=== PATIENT | female | born 1970 | race Caucasian/White ===

== ENCOUNTER 2020-05-09 15:18 | Outpatient (CLI) | payer MEDICARE, MEDICAID, SELFPAY ==
--- NOTE | 2020-05-09 15:26 | CT_ITS ---
WS: [id number] CT CERVICAL SPINE TECHNIQUE: Noncontrast CT of the cervical spine with coronal and sagittal reformatted images. CLINICAL INFORMATION: CERVICAL SPONDYLOSIS, THORACIC PAIN, SPINAL CORD STIMULATOR COMPARISON: CT 30,019 and 12 ,018 DLP: 1609.[address] scans at [facility] use at least one of these dose optimization techniques: automat ed exposure control; mA and/or kV adjustment per patient size (includes targeted exams where dose is matched to clinical indication); or iterative reconstruction. FINDINGS: Interval postoperative changes laminectomy defects in the cervical spine with dorsal column stimulator. Stimulator appears in good position. No significant central canal stenosis. Stable anterior C4-5 screw fixation and interbody fusion appears stable. Unchanged cervical fusion an teriorly C5-T1. Posterior last and screw fixation C3-T1 on the left and C3-C7 on the right. Interconne cting rods appear intact. Evidence of bony bridging beyond the confines of the fusion grafts at C5 through T1. C4 and C5 reddy ctomy defects. No high-grade central canal stenosis. C2-C3: Normal. C3-C4: Tiny central protrusion. Spinal canal and foramen are patent. Moderate facet arthropathy. C4-C 5: Prior postoperative changes laminectomy defects. Spinal canal and foramen are patent. C5-C6: Anter ior cervical fusion. Mild left bony foraminal narrowing. Spinal canal is patent. C6-C7: Anterior cervical fusion. Spinal canal and foramen are patent. C7-T1: Anterior cervical fusion. Spinal canal and foramen are patent. T1-T2: Moderate right and mild left bony foraminal narrowing. Spinal canal is patent. Visualized posterior nasopharynx: Normal. Prevertebral soft tissues: Normal. CT/CT cervical spin wo con* [id number] IMPRESSION: 1. Stable postoperative changes ACDF C4-T1. Posterior element last and screw fi xation. 2. Interval laminectomy defects in the mid cervical spine with dorsal column s timulator. 3. No other significant changes from previous. 4. Mature appearing anterior interbody fusion at C5-T1 with evidence of bony b ridging beyond the confines of the graft. 5. No high-grade central canal stenosis.
--- NOTE | 2020-05-09 15:26 | CT_ITS ---
WS: [id number] CT THORACIC SPINE TECHNIQUE: Noncontrast CT of the thoracic spine with coronal and sagittal reformatted images. CLINICAL INFORMATION: CERVICAL SPONDYLOSIS, THORACIC PAIN, SPINAL CORD STIMULATOR COMPARISON: None. DLP: 883.[address] scans at [facility] use at least one of these dose optimization techniques: automat ed exposure control; mA and/or kV adjustment per patient size (includes targeted exams where dose is matched to clinical indication); or iterative reconstruction. FINDINGS: Mild thoracic curve. Mild thoracic kyphosis. Interval placement of dorsal column stimulator in the mi d thoracic spine with laminectomy defects at the T9 level. No evidence of significant central canal s tenosis. Disc space heights and vertebral body heights well-preserved. Partially visualized postopera tive changes in the lower cervical spine extending to the T1 level described on the cervical spine CT . Normal postoperative changes in the dorsal subcutaneous soft tissues. No evidence of hematoma or dr ainable fluid collection. Partially visualized lungs are normal in appearance. Bibasilar atelectasis. Postoperative changes GE junction. Adrenal glands are normal. CT/CT thoracic spin wo con* [id number] IMPRESSION: 1. Mild thoracic kyphosis with mild thoracic curve. 2. Laminectomy defects at T9 with dorsal column stimulator. No evidence of hem atoma or drainable fluid collection. 3. No significant central canal narrowing. 4. Postoperative changes lower cervical and upper thoracic spine described on the cervical spine CT.
== END 2020-05-09 15:19 | disposition home or self-care (01) ==
LOC: RADWPI 15:24
PROVIDERS: Family Provider Family Medicine; PCP Family Medicine; Visit Provider Anesthesiology
DX: G89.4 Chronic pain syndrome (principal); Z96.82 Presence of neurostimulator; M47.812 Spondylosis without myelopathy or radiculopathy, cervical region; M96.1 Postlaminectomy syndrome, not elsewhere classified; Z98.1 Arthrodesis status; M43.23 Fusion of spine, cervicothoracic region
CPT/HCPCS: 72125; 72128

== ENCOUNTER → 2021-04-18 13:27 | Outpatient (BNVA) | payer MEDICARE, MEDICAID, SELFPAY | PROVIDERS: Family Provider Family Medicine; PCP Family Medicine; Visit Provider Specialist | DX: G43.019 Migraine without aura, intractable, without status migrainosus (principal); M96.1 Postlaminectomy syndrome, not elsewhere classified; M62.58 Muscle wasting and atrophy, not elsewhere classified, other site | CPT/HCPCS: 99205 ==

== ENCOUNTER 2021-04-25 06:00 | Outpatient (RCR) | payer MEDICARE, MEDICAID, SELFPAY | END 2021-05-09 23:59 | disposition home or self-care (01) | LOC: SPT 06:00 | PROVIDERS: PCP Family Medicine; Referring Provider Specialist; Visit Provider Specialist | DX: M96.1 Postlaminectomy syndrome, not elsewhere classified (principal); M50.90 Cervical disc disorder, unspecified, unspecified cervical region; M47.812 Spondylosis without myelopathy or radiculopathy, cervical region; G43.019 Migraine without aura, intractable, without status migrainosus; M54.5 Low back pain; M54.2 Cervicalgia | CPT/HCPCS: 97110; 97162; 99205 ==

== ENCOUNTER 2021-05-10 06:00 | Outpatient (RCR) | payer MEDICARE, MEDICAID, SELFPAY | END 2021-06-09 23:59 | disposition home or self-care (01) | LOC: SPT 06:00 | PROVIDERS: PCP Family Medicine; Referring Provider Specialist; Visit Provider Specialist | DX: M54.2 Cervicalgia (principal) | CPT/HCPCS: 97110; 97164 ==

== ENCOUNTER → 2021-05-23 14:14 | Outpatient (BNVA) | payer MEDICARE, MEDICAID, SELFPAY | PROVIDERS: PCP Family Medicine; Visit Provider Anesthesiology Pain Medicine | DX: G89.29 Other chronic pain (principal); M96.1 Postlaminectomy syndrome, not elsewhere classified; G43.019 Migraine without aura, intractable, without status migrainosus; M50.90 Cervical disc disorder, unspecified, unspecified cervical region; M47.812 Spondylosis without myelopathy or radiculopathy, cervical region; M54.50 Low back pain, unspecified | CPT/HCPCS: 99214 ==

== ENCOUNTER → 2021-06-05 14:00 | Outpatient (BNVA) | payer MEDICARE, MEDICAID, SELFPAY | PROVIDERS: PCP Family Medicine; Visit Provider Anesthesiology Pain Medicine | DX: M47.812 Spondylosis without myelopathy or radiculopathy, cervical region (principal) | CPT/HCPCS: 64490; 64491; 64492; J3490 ==

== ENCOUNTER 2021-06-10 06:00 | Outpatient (RCR) | payer MEDICARE, MEDICAID, SELFPAY | END 2021-07-09 23:59 | disposition home or self-care (01) | LOC: SPT 06:00 | PROVIDERS: PCP Family Medicine; Referring Provider Specialist; Visit Provider Specialist | DX: M54.2 Cervicalgia | CPT/HCPCS: 97110 ==

== ENCOUNTER → 2021-06-18 13:34 | Outpatient (BNVA) | payer MEDICARE, MEDICAID, SELFPAY | PROVIDERS: PCP Family Medicine; Visit Provider Anesthesiology Pain Medicine | DX: M47.812 Spondylosis without myelopathy or radiculopathy, cervical region (principal); M50.90 Cervical disc disorder, unspecified, unspecified cervical region; M96.1 Postlaminectomy syndrome, not elsewhere classified; G43.019 Migraine without aura, intractable, without status migrainosus | CPT/HCPCS: 99214 ==

== ENCOUNTER → 2021-07-09 14:35 | Outpatient (BNVA) | payer MEDICARE, MEDICAID, SELFPAY | PROVIDERS: PCP Family Medicine; Visit Provider Anesthesiology Pain Medicine | DX: M47.812 Spondylosis without myelopathy or radiculopathy, cervical region (principal) | CPT/HCPCS: 64633; 64634; J1100 ==

== ENCOUNTER → 2021-07-23 13:02 | Outpatient (BNVA) | payer MEDICARE, MEDICAID, SELFPAY | PROVIDERS: PCP Family Medicine; Visit Provider Anesthesiology Pain Medicine | DX: M47.812 Spondylosis without myelopathy or radiculopathy, cervical region (principal) | CPT/HCPCS: 64633; 64634; J1100 ==

== ENCOUNTER → 2021-09-25 10:07 | Outpatient (BNVA) | payer MEDICARE, MEDICAID, SELFPAY | PROVIDERS: PCP Family Medicine; Visit Provider Anesthesiology Pain Medicine | DX: M79.18 Myalgia, other site (principal); M96.1 Postlaminectomy syndrome, not elsewhere classified; M50.90 Cervical disc disorder, unspecified, unspecified cervical region; M47.812 Spondylosis without myelopathy or radiculopathy, cervical region; G43.019 Migraine without aura, intractable, without status migrainosus; Z98.84 Bariatric surgery status | CPT/HCPCS: 20553; 99214; J1030; J3490 ==

== ENCOUNTER → 2021-10-28 11:05 | Outpatient (BNVA) | payer MEDICARE, MEDICAID, SELFPAY | PROVIDERS: PCP Family Medicine; Visit Provider Anesthesiology Pain Medicine | DX: M47.812 Spondylosis without myelopathy or radiculopathy, cervical region (principal); M50.90 Cervical disc disorder, unspecified, unspecified cervical region; M54.50 Low back pain, unspecified; M96.1 Postlaminectomy syndrome, not elsewhere classified; G43.019 Migraine without aura, intractable, without status migrainosus; Z98.84 Bariatric surgery status; Z79.891 Long term (current) use of opiate analgesic | CPT/HCPCS: 99214 ==

== ENCOUNTER → 2021-12-23 11:03 | Outpatient (BNVA) | payer MEDICARE, MEDICAID, SELFPAY | PROVIDERS: PCP Family Medicine; Visit Provider Anesthesiology Pain Medicine | DX: M47.812 Spondylosis without myelopathy or radiculopathy, cervical region (principal); M50.90 Cervical disc disorder, unspecified, unspecified cervical region; G43.019 Migraine without aura, intractable, without status migrainosus; M96.1 Postlaminectomy syndrome, not elsewhere classified; Z98.84 Bariatric surgery status; Z79.891 Long term (current) use of opiate analgesic | CPT/HCPCS: 99214 ==

== ENCOUNTER → 2022-02-06 12:49 | Outpatient (BNVA) | payer MEDICARE, MEDICAID, SELFPAY | PROVIDERS: PCP Family Medicine; Visit Provider Anesthesiology Pain Medicine | DX: M47.812 Spondylosis without myelopathy or radiculopathy, cervical region (principal); M50.90 Cervical disc disorder, unspecified, unspecified cervical region; M79.18 Myalgia, other site; M96.1 Postlaminectomy syndrome, not elsewhere classified; G43.019 Migraine without aura, intractable, without status migrainosus; M54.50 Low back pain, unspecified; Z98.84 Bariatric surgery status; Z79.891 Long term (current) use of opiate analgesic | CPT/HCPCS: 20553; 99214 ==

== ENCOUNTER → 2022-03-06 12:50 | Outpatient (BNVA) | payer MEDICARE, MEDICAID, SELFPAY | PROVIDERS: PCP Family Medicine; Visit Provider Anesthesiology Pain Medicine | DX: Z79.891 Long term (current) use of opiate analgesic (principal); M54.16 Radiculopathy, lumbar region; M47.812 Spondylosis without myelopathy or radiculopathy, cervical region; M50.90 Cervical disc disorder, unspecified, unspecified cervical region; G43.019 Migraine without aura, intractable, without status migrainosus; M96.1 Postlaminectomy syndrome, not elsewhere classified; Z98.84 Bariatric surgery status | CPT/HCPCS: 99214 ==

== ENCOUNTER → 2022-04-09 08:44 | Outpatient (BNVA) | payer MEDICARE, MEDICAID, SELFPAY | PROVIDERS: PCP Family Medicine; Visit Provider Anesthesiology Pain Medicine | DX: M47.812 Spondylosis without myelopathy or radiculopathy, cervical region (principal); M50.90 Cervical disc disorder, unspecified, unspecified cervical region; M54.9 Dorsalgia, unspecified; M96.1 Postlaminectomy syndrome, not elsewhere classified; G43.019 Migraine without aura, intractable, without status migrainosus | CPT/HCPCS: 99214 ==

== ENCOUNTER 2022-04-15 08:46 | Outpatient (CLI) | payer MEDICARE, MEDICAID, SELFPAY ==
--- NOTE | 2022-04-15 09:00 | CT_ITS ---
WS: [id number] CT LUMBAR SPINE, noncontrast. HISTORY: M54.16 - Radiculopathy, lumbar region TECHNIQUE: Contiguous 2.5 mm axial imaging are performed. Sagittal and coronal reformats are submitte d and reviewed. All CT scans at [facility] use at least one of these dose optimization techni ques: automated exposure control; mA and/or kV adjustment per patient size (includes targeted exams w here dose is matched to clinical indication); or iterative reconstruction. IV contrast: None DLP: 1800.44 mGy.cm COMPARISON: 08/08/2019 Mild curvature lumbar spine to the RIGHT. Similar to the prior study along with mild increase in lord osis. Postoperative pedicle screw fixation at L5 and S1 and interbody fusions at L4-5 and L5-S1. Ther e is bony bridging along the graft. No change in position of the graft. L1-2: Normal. L2-3: Mild asymmetric disc bulging with no stenosis. Mild facet arthropathy. L3-4: Mild disc bulging is asymmetric with mild effacement on the ventral thecal sac. No stenosis or disc protrusion. Mild bilateral facet joint arthritis. L4-5: Moderate facet joint arthritis. Very mild encroachment upon the central thecal sac. There is no significant stenosis or disc protrusion. Moderate facet joint arthritis. Partial fusion along the fa cet joints. No change in the pedicle screws. No lucency around the pedicle screws. L5-S1: Mild osteophytic ridging. No stenosis. Moderate facet joint arthritis. Mild atherosclerosis aorta. Degenerative air in the SI joints bilaterally. CT/CT lumbar spine wo con* [id number] IMPRESSION: 1. Status post interbody fusions at L4-5 and L5-S1 with bony bridging unchange d. 2. Pedicle screws at L5 and S1 are unchanged. No lucency around the hardware. 3. Moderate facet joint arthritis at L4-5 and L5-S1 and mild at L2-3 and L3-4. 4. No adverse changes are identified as compared to the study from 2008.
== END 2022-04-15 08:47 | disposition home or self-care (01) ==
LOC: RAD 08:47
PROVIDERS: PCP Family Medicine; Visit Provider Anesthesiology Pain Medicine
DX: M54.16 Radiculopathy, lumbar region (principal); M47.816 Spondylosis without myelopathy or radiculopathy, lumbar region; M47.817 Spondylosis without myelopathy or radiculopathy, lumbosacral region; M43.26 Fusion of spine, lumbar region; M43.27 Fusion of spine, lumbosacral region
CPT/HCPCS: 72131

== ENCOUNTER → 2022-05-06 07:51 | Outpatient (BNVA) | payer MEDICARE, MEDICAID, SELFPAY | PROVIDERS: PCP Family Medicine; Visit Provider Surgery | DX: K59.00 Constipation, unspecified (principal) | CPT/HCPCS: 99203 ==

== ENCOUNTER → 2022-06-04 08:45 | Outpatient (BNVA) | payer MEDICARE, MEDICAID, SELFPAY | PROVIDERS: PCP Family Medicine; Visit Provider Anesthesiology Pain Medicine | DX: M54.16 Radiculopathy, lumbar region (principal); M47.812 Spondylosis without myelopathy or radiculopathy, cervical region; M50.90 Cervical disc disorder, unspecified, unspecified cervical region; M96.1 Postlaminectomy syndrome, not elsewhere classified; G43.019 Migraine without aura, intractable, without status migrainosus; T85.192A Other mechanical complication of implanted electronic neurostimulator of spinal cord electrode (lead), initial encounter; Z98.84 Bariatric surgery status | CPT/HCPCS: 99214 ==

== ENCOUNTER → 2022-06-11 09:07 | Outpatient (BNVA) | payer MEDICARE, MEDICAID, SELFPAY | PROVIDERS: PCP Family Medicine; Visit Provider Anesthesiology Pain Medicine | DX: M79.18 Myalgia, other site (principal); Z87.891 Personal history of nicotine dependence | CPT/HCPCS: 20553; G0463 ==

== ENCOUNTER → 2022-06-24 08:01 | Outpatient (BNVA) | payer MEDICARE, MEDICAID, SELFPAY | PROVIDERS: PCP Family Medicine; Referring Provider Anesthesiology Pain Medicine; Visit Provider Physician Assistant | DX: T85.192A Other mechanical complication of implanted electronic neurostimulator of spinal cord electrode (lead), initial encounter (principal); Z98.1 Arthrodesis status | CPT/HCPCS: 72050; 72100; 99205 ==

== ENCOUNTER → 2022-07-07 09:09 | Outpatient (BNVA) | payer MEDICARE, MEDICAID, SELFPAY | PROVIDERS: PCP Family Medicine; Visit Provider Anesthesiology Pain Medicine | DX: M47.812 Spondylosis without myelopathy or radiculopathy, cervical region (principal); M50.90 Cervical disc disorder, unspecified, unspecified cervical region; M96.1 Postlaminectomy syndrome, not elsewhere classified; G43.019 Migraine without aura, intractable, without status migrainosus; Z87.891 Personal history of nicotine dependence; Z98.84 Bariatric surgery status | CPT/HCPCS: 99214 ==

== ENCOUNTER 2022-07-25 15:06 | Observation (INO) | payer MEDICARE, MEDICAID, SELFPAY ==
[2022-07-18 08:20] VITALS: BMI 33.5
--- NOTE | 2022-07-18 08:41 | ANES.PREANE2 ---
Pre-Anesthetic Assessment Height/Weight: Height 1.63 m Weight 88.451 kg Operation Date: 07/25/22 07:00 Proposed Procedures p Nerve Stimulator Insertion/REPLACEMENT PULE GENERATOR/ELECTRODE 34488/46884/M54.2(Not Applicable) - Edgar Zavala DO Familial anesthetic complications: none Was Beta Shae taken within 24 hours: Yes Was Clonidine taken within 24 hours: N/A Social No alcohol and No tobacco Exam alert, oriented x 3, clear to auscultation bilaterally and regular rate & rhythm Airway Submandibular: within normal limits Cervical ROM: within normal limits Mallampati: Class II Dentition: full CV/HEM Arrythmia GI gastric bypass Musc/skel Lower Back Pain Chronic pain Neuropsych Anxiety and Headache Anesthetic Plan ASA status: 3 Anesthesia: General Medications/Allergies Home Medications Medication Instructions Recorded Confirmed Last Taken Type metoprolol tartrate 50 mg tablet 50 mg PO BID 04/18/21 07/18/22 07/17/22 History (Lopressor) venlafaxine 150 mg 300 mg PO DAILY 04/18/21 07/18/22 07/17/22 History capsule,extended release 24 hr (Effexor XR) zolpidem 5 mg tablet (Ambien) 5 mg PO DAILY 04/18/21 07/18/22 07/17/22 History llbukpn-ntctpcnmltxyw-rskxzshg 250 1 tab PO ONCE PRN Pain 09/25/21 07/18/22 07/17/22 History mg-250 mg-65 mg tablet (Excedrin Extra Strength) baclofen 10 mg tablet 10 mg PO BID PRN spasm #60 tabs 04/09/22 07/18/22 07/09/22 Rx topiramate 50 mg tablet 50 mg PO BID pain 30 days #60 tabs 06/04/22 07/18/22 07/11/22 Rx tramadol 50 mg tablet 50 mg PO BID PRN pain #60 tabs 07/07/22 07/18/22 07/17/22 Rx methocarbamol 750 mg tablet mg 07/18/22 Unknown History Allergies Allergy/AdvReac Type Severity Reaction Status Date / Time adhesive Allergy red skin Verified 07/18/22 08:15 tizanidine Allergy Hallucinati Verified 07/18/22 08:15 ons zonisamide [From Zonegran] AdvReac Mild ITCHING Verified 07/18/22 08:15 codeine AdvReac Racing Verified 07/18/22 08:15 thoughts hydrocodone AdvReac Itching Verified 07/18/22 08:15 ibuprofen AdvReac RASH/ Verified 07/18/22 08:15 ITCHING PFSH Anesthesia Medical History Hypertension Surgical History History of neck surgery Personal hx of gastric bypass 2-3 yrs ago [place] S/P insertion of spinal cord stimulator lumbar & cervical Family History Other Diabetes Social History (Updated 07/07/22 @ 09:39 by Nicky Patel LPN) Smoking and tobacco status: former smoker Second hand smoke exposure: No Alcohol intake: never Substance/Drug Use: never History of recent travel: No Data Anesthesia Cardiac Studies: No Data to Display
[2022-07-25] VITALS (25 sets, daily range): BP systolic 114–145; BP diastolic 77–101; PULSE 71–102; RESP 16–18; TEMP 36.6–36.8; O2SAT 93–100
--- NOTE | 2022-07-25 | XR_ITS ---
WS: [id number] Thoracic spine, C-arm fluoroscopy, 07/25/2022 Clinical Data: removal of spinal cord stimulator Comparison: CT thoracic spine, 05/09/2020 Findings: The thoracic spinal cord stimulator has been removed. XR/XR thoracic spine 1V [id number] Impression: Removal of thoracic epidural stimulator.
--- NOTE | 2022-07-25 06:08 | P.HP_ITS ---
Providers/Chief Complaint Primary Care Provider: Leela France DO Chief Complaint: INSERTION/REPLACEMENTOF SPINAL NEUROSTIMULATOR PUL History of Present Illness Rea Rider is a 52 year old female Patient is here for removal of her thoracic neurostimulator and battery pack and replacement with a new 1. Review of Systems Const: Reports: fatigue; Denies: fever(s) or chills Eyes: Denies: change in vision or blurry vision ENMT: Denies: throat pain or ear or mastoid pain Card: Denies: chest pain or palpitations Resp: Denies: dyspnea or productive cough GI: Denies: abdominal pain, nausea or vomiting Musc: Reports: neck pain, back pain and extremity pain Skin/Breast: Denies: rash or pruritus Neuro: Reports: numbness in extremities; Denies: difficulty walking Psych: Denies: anxiety or depression Medications/Allergies Home Medications Medication Instructions Recorded Confirmed Last Taken Type metoprolol tartrate 50 mg tablet 50 mg PO BID 04/18/21 07/18/22 07/17/22 History (Lopressor) venlafaxine 150 mg 300 mg PO DAILY 04/18/21 07/18/22 07/17/22 History capsule,extended release 24 hr (Effexor XR) zolpidem 5 mg tablet (Ambien) 5 mg PO DAILY 04/18/21 07/18/22 07/17/22 History qilrzng-lfdvnlbwvcngx-xnaqssoj 250 1 tab PO ONCE PRN Pain 09/25/21 07/18/22 07/17/22 History mg-250 mg-65 mg tablet (Excedrin Extra Strength) baclofen 10 mg tablet 10 mg PO BID PRN spasm #60 tabs 04/09/22 07/18/22 07/09/22 Rx topiramate 50 mg tablet 50 mg PO BID pain 30 days #60 tabs 06/04/22 07/18/22 07/11/22 Rx tramadol 50 mg tablet 50 mg PO BID PRN pain #60 tabs 07/07/22 07/18/22 07/17/22 Rx methocarbamol 750 mg tablet mg 07/18/22 Unknown History Allergies Allergy/AdvReac Type Severity Reaction Status Date / Time adhesive Allergy red skin Verified 07/18/22 08:15 tizanidine Allergy Hallucinati Verified 07/18/22 08:15 ons zonisamide [From Zonegran] AdvReac Mild ITCHING Verified 07/18/22 08:15 codeine AdvReac Racing Verified 07/18/22 08:15 thoughts hydrocodone AdvReac Itching Verified 07/18/22 08:15 ibuprofen AdvReac RASH/ Verified 07/18/22 08:15 ITCHING PFSH Acute PFSH: Medical History Hypertension Surgical History History of neck surgery Personal hx of gastric bypass 2-3 yrs ago [place] S/P insertion of spinal cord stimulator lumbar & cervical Family History Other Diabetes Social History (Updated 07/07/22 @ 09:39 by Nicky Patel LPN) Smoking and tobacco status: former smoker Second hand smoke exposure: No Alcohol intake: never History of recent travel: No Vitals/I&O/Wt Last Vital Signs Temp 97.8 F 07/25/22 06:07 Pulse 89 07/25/22 06:07 Resp 18 07/25/22 06:07 BP 143/83 07/25/22 06:07 Pulse Ox 96 07/25/22 06:07 O2 Del Method 07/25/22 06:07 Physical Exam Narrative: CONSTITUTIONAL: The patient is a normal appearing [] in no apparent distress. GENERAL: Patient in no acute distress. CARDIAC: Regular rate and rhythm. CHEST: Normal inspiratory effort, normal respiratory rate. ABDOMEN: Soft and nontender. SKIN: Clear, warm and intact. NEURO?PSYCH: The patient is alert and oriented to person, place and time. Sensorv /SILT Motor StrengthShoulder abduction C5 5/5Wrist extension C6 5/5Elbow extension C7 5/5Hand Link Knitting Machine Operator C8 5/5Finger abduction T15/5 Radial/ Ulnar/ Median n intact LowerSensory (SILT)Motor StrengthHin flexion L2/3Ant/inner thigh 5/5Hip adduction L2/3 5/5Knee extension L4 Lat thigh, 5/5Toe dorsiflexion L5 5/5Ankle dorsiflexion L5/ Y42Ytmrivt flexion S1 5/5 DTRBleeps 2+Triceps 2+Brachioradialis 2+Patellar 2+Achilles 2+ MUSCULOSKELETAL: [] UPPEREXTREMITIES: The patient had full active ROM in fingers, wrist, elbow, and shoulder. The patient demonstrated ability to fully flex/extend/abduct/adduct fingers, make ok sign, cross 2nd/3rd digits, extend 1st digit fully.. Radial pulse 2+, CR<2 seconds. LOWER EXTREMITIES: Pt has full, active ROM of toes, ankle, knee, and hip. Dorsalis pedis/posterior tibialis pulses 2+, CR<2 seconds. SPINE: Skin warm, dry, intact. A&P Assessment and plan (1) Status post lumbar spinal fusion: Replacement of neurostimulator. Attestations Medical Necessity Statement*: All stimulator is not working. Coding Level of Care Code Acute Resin Coater for Chg Fwd Diagnoses Status post lumbar spinal fusion Z98.1
[2022-07-25 06:11] LABS: OR HCG Qualitative Urine Negative (Negative)
[2022-07-25] MEDS: sodium chloride 0.9% 1,000 ML 30 ML IV (06:11)
[2022-07-25] MEDS: ceFAZolin 2,000 MG in sodium chloride 0.9% (plus) 50 ML 100 MG IV ×3 (07:08→23:14)
[2022-07-25] MEDS: fentaNYL 50 mcg/mL INJ 2mL IVP (08:55)
--- NOTE | 2022-07-25 09:08 | PM.OP ---
Operative Report Date of procedure: July 25, 2022 Pre-op diagnosis: Preop Diagnosis Malfunctioning spinal cord stimulator Post-op diagnosis: same Procedure done: 1. Removal of neuro stimualtor 2. Removal of battery for neuro stimulator Surgeon: Edgar Zavala Estimated blood loss (mL): 25 Procedure: 1. Removal of neuro stimualtor 2. Removal of battery for neuro stimulato Patient was brought to the procedure after undergoing anesthesia was placed in the prone position. All areas appear well-padded patient was prepped draped normal sterile fashion. Skin was made over the previous skin incision dissected down. The previous neurostimulator was identified it was partially out and in the soft tissue. The dissection was brought down to the lamina with the plan of sliding a new paddle in. A laminectomy was performed on the microscope and once his laminectomies completed the tissues were freed up with the hockey-stick failure. He had in the new neurostimulator set up. He was meeting resistance. At this point I elected to start to perform laminectomy at the level above to see if we get it out further. However the dura was significant scarred down and actually got a small dural leak. Which I put a patch over and DuraSeal and the leak immediately stopped. The wound was then closed up in a layered fashion. Prior to closing up the all paddle was removed. And cut. Next attention was brought to the battery over the left flank. The skin incision made over the previous incision the battery was identified but it was moved wires were pulled C-arm was brought in the shoulder was an leads and batteries were removed. And then the wound was closed in layered fashion with 0 Vicryl 2-0 Vicryl and Monocryl suture. Sterile dressings were applied and patient was transferred to the PACU in stable addition.
[2022-07-25] MEDS: oxyCODONE-APAP 5-325 mg Tablet PO ×3 (12:18→21:00)
[2022-07-25] MEDS: methocarbamol 750 mg Tablet PO (13:54)
--- NOTE | 2022-07-25 14:38 | ANE.PACU2 ---
Inpatient post-anesthesia follow up: Airway intact: Yes Vital signs: Temperature 98.2 F Pulse Rate 101 Respiratory Rate 16 Blood Pressure 145/90 Pulse Oximetry 93 Oxygen Delivery Me thod Room Air Oxygen Flow Rate Fraction of Inspir ed Oxygen Hydration adequate: Yes Nausea and vomiting: No Pain level: 1 Mental status: Baseline
[2022-07-25] MEDS: morphine 4 mg/mL SDV 1 mL 2 MG IVP (17:50)
[2022-07-25] MEDS: metoprolol tartrate 50 mg Tablet PO (18:12)
[2022-07-25] MEDS: zolpidem 5 mg Tablet PO (21:00)
[2022-07-25] MEDS: lactated ringers 1,000 ML 90 ML IV (21:01)
[2022-07-26 02:37] VITALS: RESP 18
[2022-07-26] MEDS: oxyCODONE-APAP 5-325 mg Tablet PO ×2 (02:37→09:25)
[2022-07-26 04:00] VITALS: BP 115/73; PULSE 88; RESP 16; TEMP 36.6; O2SAT 95
[2022-07-26] MEDS: ceFAZolin 2,000 MG in sodium chloride 0.9% (plus) 50 ML 100 MG IV (06:01)
[2022-07-26] MEDS: methocarbamol 750 mg Tablet PO (06:08)
[2022-07-26 07:56] VITALS: PULSE 76; RESP 16; O2SAT 98
[2022-07-26 08:00] VITALS: BP 118/73; PULSE 74; RESP 14; TEMP 36.6; O2SAT 98
[2022-07-26 09:25] VITALS: RESP 18
[2022-07-26] MEDS: venlafaxine ER (24HR) 150 mg Capsule 300 MG PO (09:25)
[2022-07-26] MEDS: metoprolol tartrate 50 mg Tablet PO (09:26)
[2022-07-26] MEDS: docusate sodium 100 mg Capsule PO (09:26)
--- NOTE | 2022-07-26 09:45 | PM.DCS ---
Discharge Providers Date of Admission: 07/25/22 15:06 Date of Discharge: July 26, 2022 Attending Provider at Admission: Edgar Zavala DO Attending Provider at Discharge: Edgar Zavala DO Primary Care Provider: Leela France DO Diagnoses at Discharge Discharge Diagnosis (1) Status post lumbar spinal fusion: Status: Acute Reason for Visit Reason for Visit: INSERTION/REPLACEMENTOF SPINAL NEUROSTIMULATOR PUL Hospital Course Hospital Course Patient had a dural leak and her headaches were tipped her over. Discharge Data Studies Completed and Pending Completed Studies During Hospitalization Category Date Time Status XR thoracic spine 1V 33442 Routine Exams 07/25/22 Completed Pending at discharge Category Date Time Status C-arm Fluoroscopy [id number] Routine Exams 07/25/22 05:50 Taken Radiology Impressions Thoracic Spine X-Ray 07/25/22 00:00 Impression: Removal of thoracic epidural stimulator. Laboratory Results Urine HCG, Qual Negative (Negative) 07/25/22 06:00 Vitals Last Vital Signs Temp 97.9 F 07/26/22 08:00 Pulse 74 07/26/22 08:00 Resp 18 07/26/22 09:25 BP 118/73 07/26/22 08:00 Pulse Ox 98 07/26/22 08:00 O2 Del Method 07/26/22 08:00 Discharge Plan Discharge Patient Disposition: Home Condition: Stable Prescriptions: New oxycodone 10 mg tablet 10 mg PO Q4H PRN (Reason: pain) 7 Days Qty: 42 0RF Continued venlafaxine [Effexor XR] 150 mg capsule,extended release 24hr 300 mg PO DAILY metoprolol tartrate [Lopressor] 50 mg tablet 50 mg PO BID zolpidem [Ambien] 5 mg tablet 5 mg PO DAILY Excedrin Extra Strength 250-250-65 mg tablet 1 tab PO ONCE PRN (Reason: Pain) baclofen 10 mg tablet 10 mg PO BID PRN (Reason: spasm) Qty: 60 1RF tramadol 50 mg tablet 50 mg PO BID PRN (Reason: pain) Qty: 60 1RF Rx Instructions: may fill 30 days after previous refill topiramate 50 mg tablet 50 mg PO BID 30 Days Qty: 60 0RF methocarbamol 750 mg Tablet 750 mg PO QID PRN (Reason: Muscle Spasm) Discharge Orders: Discharge Order (Routine); Ordered 07/26/22 Ordered By: Edgar Zavala Discharge Diet: Advance as tolerated Discharge Activity: Limit activity as instructed Patient Instructions: Opioid Safety Activity Restrictions/Additional Instructions: Thank you for [facility] for your care! The following is a list of instructions, from your provider, to follow upon your discharge to ensure you have the optimal recovery from your recent injury orsurgery. Follow-up care is a jimenez part of your treatment and safety. Be sure to make and go to all appointments, and call your doctor if you are having problems. If you do not already have a follow-up appointment made, call Dr. Zavala office in the next 1-3 days to make follow up appointment for this July 29 . It is also a good idea to know your test results and keep a list of the medicines you take. Medications will be prescribed for you at your provider's discretion. These medications are to be used as instructed; if they are taken more often that prescribed they will not be refilled early and in most cases will not be refilled at all. > When a refill is needed,you should contact floyd lewis 2-3 business days before your prescription runs out. Medications will NOT be refilled by process control operator providers after hours! > Many pain medications contain Tylenol (Acetaminophen). Do not consume more than 4,000 mg of Tylenol per day in total with any combination ofmedications. > Pain medications can cause constipation. Please use an over the counter stool softener as directed, while taking pain medications. Consulty our local pharmacist with questions or recommendations on stool softeners. If constipation persists, contact our office or your primary care provider. > While under our care,you are not to receive pain medications or other controlled substances from any other provider unless our office is notified and approves. Any attempts to do so will result in refusal to prescribe any further pain medications and possible dismissal from our practice. ? Your wound and/or dressing should remain clean and dry for 2 days after surgery. On postoperative day 2 (48 hours after your surgery) the dressing (if present) should be removed and it is okay to shower and get the incision wet. Pad dry afterwards. No further dressing should be required from that point on. Do not put any creams or ointments on theincision > It is normal for there to be a small amount of discharge (bloody or blood tinged) present from a surgical wound for the first 1-3days. > The wound should be examined twice a day for signs of infection. Mild redness or bruising is to be expected but indications that an infection maybe starting would include; An increase in redness, swelling, or discharge, a foul odor present around the incision, and/or a fever greater than 101 ?F ? Showering is permitted, however we ask that you do not take a bath, sit in a whirlpool / Jacuzzi, or go swimming for 1 month. For only the first 2 days after surgery, lt wilt be necessary for you to cover your wound/dressing with plastic and tape to keep it dry. ? Walking is essential for the healing process after surgery. We would like you to slowly advance your walking. This should be done on relatively flat clear ground (inside or out) or can be done on a treadmill. Remember this goal does not have to happen all at once, slowly increase your distance and duration. This can be broken into more more than one walk per day as tolerated. Patients who walk as directed after surgery rarely require Physical Therapy. In the unlikely event this issue arises your provider will direct hospital staff to make the appropriate arrangements. ? No lifting over 5 pounds {a gallon of milk) or bending/twisting until further notice. Each of these activities places an unnecessary amount of stress onto the body and can impede the delicate healing process. > Instead of bending at the waist, keep your back straight and bend at the knees. > Instead of twisting your torso, keep your back straight and turn your entire body with your feet. ? You may sleep in any position which makes you comfortable. Many patients find comfort sleeping in a reclining chair. It is not abnormal to have difficulty sleeping for the first several weeks following your surgery. We recommend trying Benadry! or Tylenol PM as directed to help with your sleeping difficulties. Both medications are over the counter and available withoutprescription. ? NO SMOKING!!! Smoking dramatically increases the probability of developing postoperative wound infections. ? Common complaints after lumbar and/or thoracic spine surgery include, but are not limited to: numbness and/or tingling in the legs, pain around the incision and surrounding tissues, muscle spasms, or stiffness of the middle to low back. Contact our office if these symptoms persist or if an acute change occurs. ? No driving for the first 3-5days, and not while taking narcotics [] until seen at your follow-up appointment and cleared. There are no restrictions for riding on short trips, however if you take a longer trip, arrangements should be made to make regular stops to get out of the vehicle and stretch . ? Swelling is an unfortunate event that will take place with any surgery and is the primary source of your postoperative discomfort. While walking and regular approved activities helps control inflammation, there are additional steps you can take to minimizeswelling. > Place ice over the surgical site and surrounding tissue for twenty minutes, followed by applying a low/medium heat (heating pad) for an additional twenty minutes every 1-2 hours as needed for painrelief. > You may use of over the counter anti-inflammatory medications (Ibuprofen, Motrin, Aleve, Advil, etc) as directed on the package label. These types of medicines wm significantly reduce the amount of discomfort you experience after surgery from swelling. It should be noted that if you have and allergy to any of these medications, or a history of ulcers or kidney disease you should consult you primary care provider prior to starting these medications. Discharge Attestations Time Spent in Discharge Care*: less than 30 min Quality Metrics Clinical Quality Measures [ No reported AMI, CVA or VTE this stay] Coding Level of Care Code Acute g FW DC note Diagnoses Status post lumbar spinal fusion Z98.1
--- NOTE | 2022-07-26 12:00 | PC.NURSE ---
IV removed intact. Patient tolerated well. Patient is A&Ox3. Respirations even and non-labored on room air. Reviewed patient discharge instructions with patient who verbalized understanding of discharge instructions and how to make her pain medications. Patient assisted into wheel chair and pushed to private car.
[2022-07-26 12:33] VITALS: BP 120/70; PULSE 88; RESP 18; TEMP 36.8; O2SAT 95
== END 2022-07-26 12:05 | disposition home or self-care (01) ==
LOC: MEDSURG 15:06
PROVIDERS: Admitting Provider Orthopaedic Surgery; PCP Family Medicine; Visit Provider Orthopaedic Surgery
PROC: (CPT 63662; principal; 2022-07-25 07:00)
DX: T85.193A Other mechanical complication of implanted electronic neurostimulator, generator, initial encounter (principal); I10 Essential (primary) hypertension; Z98.84 Bariatric surgery status; Z87.891 Personal history of nicotine dependence
CPT/HCPCS: 63662; 63688; 72020; 76000; 81025; 84703; G0378; J0690; J1100; J2270; J2405; J2710; J3010; J3490; J7030; J7120

== ENCOUNTER → 2022-07-29 13:18 | Outpatient (BNVA) | payer MEDICARE, MEDICAID, SELFPAY | PROVIDERS: PCP Family Medicine; Visit Provider Orthopaedic Surgery | DX: T81.89XD Other complications of procedures, not elsewhere classified, subsequent encounter (principal); X58.XXXA Exposure to other specified factors, initial encounter | CPT/HCPCS: 99024 ==

== ENCOUNTER → 2022-08-05 08:29 | Outpatient (BNVA) | payer MEDICARE, MEDICAID, SELFPAY | PROVIDERS: PCP Family Medicine; Visit Provider Orthopaedic Surgery | DX: G96.11 Dural tear (principal); R51.9 Headache, unspecified; Z47.89 Encounter for other orthopedic aftercare | CPT/HCPCS: 99024 ==

== ENCOUNTER 2022-08-06 14:51 | Inpatient (IN) | payer MEDICARE, MEDICAID, SELFPAY ==
[2022-08-05 12:08] VITALS: BMI 33.5
[2022-08-06] VITALS (23 sets, daily range): BP systolic 108–130; BP diastolic 67–88; PULSE 74–97; RESP 12–18; TEMP 36.6–37; O2SAT 91–97
[2022-08-06 06:26] LABS: OR HCG Qualitative Urine Negative (Negative)
--- NOTE | 2022-08-06 06:38 | P.ANESASSM_ITS ---
Pre-Anesthetic Assessment Height/Weight: Height 1.63 m Weight 88.451 kg Preop Diagnosis: Dural tear thoracic spine Operation Date: 08/06/22 07:00 Proposed Procedures p Dura Repair 30072(Not Applicable) - Edgar Zavala DO Familial anesthetic complications: None Was Beta Shae taken within 24 hours: Yes Was Clonidine taken within 24 hours: N/A Last intake: Intake Last Liquid Date 02/10/89 Last Solid Date 08/05/22 Last Solid Time 19:00 Social No alcohol and No tobacco Exam alert, oriented x 3, clear to auscultation bilaterally and regular rate & rhythm Airway Mallampati: Class II Dentition: full CV/HEM Arrythmia GI gastric bypass Musc/skel Lower Back Pain Anesthetic Plan ASA status: 2 Anesthesia: General Risk of > 500 ml blood loss (7ml/kg in children): No Medications/Allergies Home Medications Medication Instructions Recorded Confirmed Last Taken Type metoprolol tartrate 50 mg tablet 50 mg PO BID 04/18/21 08/06/22 08/06/22 History (Lopressor) venlafaxine 150 mg 300 mg PO DAILY 04/18/21 08/06/22 08/05/22 History capsule,extended release 24 hr (Effexor XR) zolpidem 5 mg tablet (Ambien) 5 mg PO DAILY 04/18/21 08/06/22 08/05/22 History yrqbvdg-kmvtfwoyhrpbg-fhxepxmw 250 1 tab PO ONCE PRN Pain 09/25/21 08/06/22 08/06/22 History mg-250 mg-65 mg tablet (Excedrin Extra Strength) tramadol 50 mg tablet 50 mg PO BID PRN pain #60 tabs 07/07/22 08/05/22 07/17/22 Rx methocarbamol 750 mg tablet 750 mg PO QID PRN Muscle Spasm 07/18/22 08/06/22 08/06/22 History ondansetron HCl 4 mg tablet 4 mg PO Q8H PRN nausea and 07/29/22 08/06/22 Unknown Rx vomiting #60 tabs oxycodone 10 mg tablet 10 mg PO Q4H PRN Pain 08/06/22 08/06/22 08/05/22 History Allergies Allergy/AdvReac Type Severity Reaction Status Date / Time adhesive Allergy red skin Verified 08/05/22 12:06 tizanidine Allergy Hallucinati Verified 08/05/22 12:06 ons [facility] AdvReac Mild ITCHING Verified 08/05/22 12:06 codeine AdvReac Racing Verified 08/05/22 12:06 thoughts hydrocodone AdvReac Itching Verified 08/05/22 12:06 ibuprofen AdvReac RASH/ Verified 08/05/22 12:06 ITCHING PFSH Anesthesia Medical History Hypertension Surgical History History of neck surgery Personal hx of gastric bypass 2-3 yrs ago [place] S/P insertion of spinal cord stimulator lumbar & cervical Family History Other Diabetes Social History Smoking and tobacco status: former smoker Second hand smoke exposure: No Alcohol intake: never History of recent travel: No Female Reproductive History Date of last menstrual period: 07/14/22 Data Anesthesia Cardiac Studies: No Data to Display
--- NOTE | 2022-08-06 06:40 | W.PM.OPSUD ---
Surgery/Procedure H&P Update DATE OF PROCEDURE: August 06, 2022 DATE H&P PERFORMED: 08/05/22 H&P UPDATE INFORMATION: I have reviewed H&P completed within last 30 days, I have examined patient prior to procedure and No changes to prior documentation PREOP DIAGNOSIS: Dural tear thoracic spine PLANNED PROCEDURE: Operation Date: 08/06/22 07:00 Proposed Procedures p Dura Repair 27990(Not Applicable) - Edgar Zavala DO
[2022-08-06] MEDS: sodium chloride 0.9% 1,000 ML 30 ML IV ×2 (06:55→09:57)
[2022-08-06] MEDS: ceFAZolin 2,000 MG in sodium chloride 0.9% (plus) 50 ML 100 MG IV ×3 (07:05→22:22)
--- NOTE | 2022-08-06 08:15 | P.OP_ITS ---
Operative Report Date of procedure: August 06, 2022 Pre-op diagnosis: Preop Diagnosis Dural tear thoracic spine Post-op diagnosis: same Procedure done: 1. repair dural tear Surgeon: Edgar Zavala Stylist Apprentice: Kenn Ryan Stylist Apprentice: The ophthalmology surgical technician, Kenn Ryan, DARYN was needed for his expertise under the microscope. He was important and necessary throughout the procedure to complete in a safe and timely manner. He assisted with patient positioning prepping and draping tissue retraction suctioning of the operative field protection of the dural sac and tissue closure Estimated blood loss (mL): 5 Procedure: Repair of dural tear Patient is brought the operative suite after undergoing anesthesia patient was placed in the prone position. All areas impingement well-padded. Patient was prepped and draped sterile fashion. Skin skin is made using previous skin incision. Sutures removed retractors were placed microscope was brought in and the area where the dural tear occurred was identified. There was minimal leakage. The area was cleaned up with a curved curettes and Kerrisons the tear was identified significant mount of scar tissue around the edge of it. I was unable to put a stitch in it due to the fact that there is significant scar tissue around it and a permanent scar tissue the whole get better this point I put 2 pieces of DuraGen on it in 6 which seal it and then put DuraSeal over it. Wounds were then closed in layered fashion prior to this Valsalva maneuver was used there was no leakage. The again the wound was closed in a layered fashion with 0 Vicryl 2-0 Vicryl Monocryl suture. Sterile dressings were applied and patient was transferred to the PACU in stable condition.
[2022-08-06] MEDS: ondansetron 2 mg/ML SDV 2 mL 4 MG IVP (09:03)
[2022-08-06] MEDS: metoclopramide 5 mg/mL SDV 2 mL 10 MG IVP (09:46)
--- NOTE | 2022-08-06 09:57 | SUR.PHASEI ---
0818 Bilat SCDs on and on pump.
--- NOTE | 2022-08-06 12:53 | ANE.PACU2 ---
Inpatient post-anesthesia follow up: Airway intact: Yes Vital signs: Temperature 98.1 F Pulse Rate 88 Respiratory Rate 18 Blood Pressure 111/88 Pulse Oximetry 95 Oxygen Delivery Me thod Room Air Oxygen Flow Rate 6 Fraction of Inspir ed Oxygen Hydration adequate: Yes Nausea and vomiting: No Pain level: 1 Mental status: Baseline
[2022-08-06] MEDS: oxyCODONE-APAP 5-325 mg Tablet PO (13:40)
[2022-08-06] MEDS: docusate sodium 100 mg Capsule PO (17:24)
[2022-08-06] MEDS: metoprolol tartrate 50 mg Tablet PO (17:25)
[2022-08-06] MEDS: oxyCODONE 5 mg IR Tab/Cap 10 MG PO ×2 (17:28→21:59)
[2022-08-06] MEDS: morphine 4 mg/mL SDV 1 mL 2 MG IVP (19:20)
[2022-08-06] MEDS: acetaminophen 325 mg Tablet 650 MG PO (19:26)
[2022-08-06] MEDS: zolpidem 5 mg Tablet PO (21:53)
[2022-08-06] MEDS: lactated ringers 1,000 ML 90 ML IV (21:54)
[2022-08-07] VITALS (7 sets, daily range): BP systolic 123–137; BP diastolic 74–84; PULSE 85–94; RESP 16–19; TEMP 36.7–37.1; O2SAT 91–97
[2022-08-07] MEDS: oxyCODONE 5 mg IR Tab/Cap 10 MG PO ×3 (01:46→13:32)
[2022-08-07] MEDS: ceFAZolin 2,000 MG in sodium chloride 0.9% (plus) 50 ML 100 MG IV (06:10)
--- NOTE | 2022-08-07 07:31 | P.PN_ITS ---
Subjective Subjective: POD 1 Patient resting comfortably. Denies any headaches. Denies any leg pain. Denies any chest pain, shortness of breath. Vitals/I&O/Wt Last Vital Signs Temp 98.7 F 08/07/22 06:00 Pulse 89 08/07/22 06:00 Resp 19 H 08/07/22 06:00 BP 132/82 08/07/22 06:00 Pulse Ox 95 08/07/22 06:00 O2 Del Method 08/07/22 06:00 O2 Flow Rate 6 08/06/22 08:15 08/06/22 08/07/22 08/07/22 22:59 06:59 14:59 Intake Total 410 / 1510 700 / 2210 Output Total 1100 / 1105 700 / 1805 Balance -690 / 405 0 / 405 Weight last 48 hrs Weight 195 lb Physical Exam Narrative: Patient presents alert and oriented x3 with a good general appearance normal mood and affect. Mild tenderness around the incisional site with the incision appear to be healing nicely. No signs of erythema or drainage. No signs of infection. Patient denies any fevers or chills. 5/5 motor strength both lower extremities with negative straight leg raise bilaterally. Calves are supple no medial thigh tenderness. Pulses are 2+ at the dorsalis pedis and posterior tibial region. Good capillary refill throughout normal sensation light touch both lower extremities. Urinary Catheter Management: Canela: Cath Placed During This Visit: yes Reason for Continuing Indwelling Catheter: Required Immobilization for Trauma or Surgery or Anesthesia Urinary Catheter Date of Insertion: 08/06/22 Urinary Catheter Time of Insertion: 07:10 A&P Assessment and plan (1) Incidental durotomy: Discussed with the patient to transition head of the bed up 30 degrees and transition slowly as tolerated. Work with mobilization. Discontinue Canela catheter if transitioning smoothly. Discharge orders were placed if the patient is transitioning in stable condition. Encourage incentive spirometry for pulmonary toilet. Discussed if she transitions home if she has a headache to continue to lay flat for the next 24 to 48 hours. Discussed caffeinated products will help with her condition. We will see her back in the office in 1 week's time she will call if she is having problems. Attestations Medical Necessity Statement*: Discharge home later today if stable. Coding Level of Care Code Acute Machine Heel Seat Fitter for Gh[facility]al Hutchins Diagnoses Incidental durotomy G97.41
[2022-08-07] MEDS: docusate sodium 100 mg Capsule PO (07:59)
[2022-08-07] MEDS: metoprolol tartrate 50 mg Tablet PO (07:59)
[2022-08-07] MEDS: venlafaxine ER (24HR) 150 mg Capsule 300 MG PO (07:59)
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
--- NOTE | 2022-08-12 08:25 | P.DS_ITS ---
Discharge Providers Date of Admission: 08/06/22 14:51 Date of Discharge: 08/07/2022 Attending Provider at Admission: Edgar Zavala DO Attending Provider at Discharge: Edgar Zavala DO Primary Care Provider: Leela France DO Diagnoses at Discharge Discharge Diagnosis (1) Incidental durotomy: Status: Acute Reason for Visit Reason for Visit: DURA REPAIR [id number] Hospital Course Hospital Course headaches improved Physical Exam Urinary Catheter Management: Canela: Cath Placed During This Visit: yes, but has since been removed by the nurse Reason for Continuing Indwelling Catheter: Decision to DC Catheter Urinary Catheter Date of Insertion: 08/06/22 Urinary Catheter Time of Insertion: 07:10 Date Urinary Catheter Removed: 08/07/22 Time Urinary Catheter Discontinued: 13:30 Discharge Data Studies Completed and Pending Laboratory Results Urine HCG, Qual Negative (Negative) 08/06/22 06:23 Vitals Last Vital Signs Temp 98.0 F 08/07/22 11:26 Pulse 85 08/07/22 11:26 Resp 18 08/07/22 13:32 BP 123/74 08/07/22 11:26 Pulse Ox 97 08/07/22 11:26 O2 Del Method 08/07/22 07:36 O2 Flow Rate 6 08/06/22 08:15 Discharge Plan Discharge Patient Disposition: Home Condition: Stable Prescriptions: New oxycodone 10 mg tablet 10 mg PO Q4H PRN (Reason: pain) 7 Days Qty: 40 0RF Continued venlafaxine [Effexor XR] 150 mg capsule,extended release 24hr 300 mg PO DAILY metoprolol tartrate [Lopressor] 50 mg tablet 50 mg PO BID zolpidem [Ambien] 5 mg tablet 5 mg PO DAILY Excedrin Extra Strength 250-250-65 mg tablet 1 tab PO ONCE PRN (Reason: Pain) tramadol 50 mg tablet 50 mg PO BID PRN (Reason: pain) Qty: 60 1RF Rx Instructions: may fill 30 days after previous refill ondansetron HCl 4 mg tablet 4 mg PO Q8H PRN (Reason: nausea and vomiting) Qty: 60 0RF methocarbamol 750 mg Tablet 750 mg PO QID PRN (Reason: Muscle Spasm) oxycodone 10 mg Tablet 10 mg PO Q4H PRN (Reason: Pain) Discharge Orders: Discharge Order (Routine); Ordered 08/07/22 Ordered By: Kenn Ryan Referrals: Edgar Zavala DO [Physician] - 08/14/22 8:45 am Discharge Diet: Advance as tolerated Discharge Activity: Limit activity as instructed Patient Instructions: Oxycodone/Acetaminophen (By mouth), Lumbar Spinal Fusion (GEN), Opioid Safety Activity Restrictions/Additional Instructions: Thank you for [facility] for your care! The following is a list of instructions, from your provider, to follow upon your discharge to ensure you have the optimal recovery from your recent laminectomy/dural repair surgery. If experiencing headaches at home continue to lay flat for the next 24 to 48 hours. Caffeinated products will help in your recovery. Follow-up care is a jimenez part of your treatment and safety. Be sure to make and go to all appointments and call your doctor if you are having problems. If you do not already have a follow-up appointment made, call Dr. Zavala's] office in the next 1-3 days to make follow up appointment on Thursday08/12/22 at [phone]. It is also a good idea to know your test results and keep a list of the medicines you take. Medications will be prescribed for you at your provider's discretion. These medications are to be used as instructed; if they are taken more often that prescribed they will not be refilled early and in most cases will not be refilled at all. > When a refill is needed,you should contact floyd lewis 2-3 business days before your prescription runs out. Medications will NOT be refilled by air conditioning installer providers after hours! > Many pain medications contain Tylenol (Acetaminophen). Do not consume more than 4,000 mg of Tylenol per day in total with any combination ofmedications. > Pain medications can cause constipation. Please use an over the counter stool softener as directed, while taking pain medications. Consult your local pharmacist with questions or recommendations on stool softeners. If constipation persists, contact our office or your primary care provider. > While under our care, you are not to receive pain medications or other controlled substances from any other provider unless our office is notified and approves. Any attempts to do so will result in refusal to prescribe any further pain medications and possible dismissal from our practice. Your wound and/or dressing should remain clean and dry for 2 days after surgery. On postoperative day 2 (48 hours after your surgery) the dressing (if present) should be removed and it is okay to shower and get the incision wet. Pad dry afterwards. No further dressing should be required from that point on. Do not put any creams or ointments on theincision > It is normal for there to be a small amount of discharge (bloody or blood tinged) present from a surgical wound for the first 1-3days. > The wound should be examined twice a day for signs of infection. Mild redness or bruising is to be expected but indications that an infection maybe starting would include; An increase in redness, swelling, or discharge, a foul odor present around the incision, and/or a fever greater than 101 ?F ? Showering is permitted, however we ask that you do not take a bath, sit in a whirlpool / Jacuzzi, or go swimming for 1 month. For only the first 2 days after surgery, lt will be necessary for you to cover your wound/dressing with plastic and tape to keep it dry. ? Walking is essential for the healing process after surgery. We would like you to slowly advance your walking. This should be done on relatively flat clear ground (inside or out) or can be done on a treadmill. Remember this goal does not have to happen all at once, slowly increase your distance and duration. This can be broken into more more than one walk per day as tolerated. Patients who walk as directed after surgery rarely require Ph ysical Therapy. In the unlikely event this issue arises your provider will direct hospital staff to make the appropriate arrangements. ? No lifting over 5 pounds {a gallon of milk) or bending/twisting until further notice. Each of these activities places an unnecessary amount of stress onto the body and can impede the delicate healing process. > Instead of bending at the waist, keep your back straight and bend at the knees. > Instead of twisting your torso, keep your back straight and turn your entire body with your feet. ? You may sleep in any position which makes you comfortable. Many patients find comfort sleeping in a reclining chair. It is not abnormal to have difficulty sleeping for the first several weeks following your surgery. We recommend trying Benadry! or Tylenol PM as directed to help with your sleeping difficulties. Both medications are over the counter and available without prescription. ? NO SMOKING!!! Smoking dramatically increases the probability of developing postoperative wound infections. ? Common complaints after lumbar and/or thoracic spine surgery include, but are not limited to: numbness and/or tingling in the legs, pain around the incision and surrounding tissues, muscle spasms, or stiffness of the middle to low back. Contact our office if these symptoms persist or if an acute change occurs. ? No driving for the first 3-5days, and not while taking narcotics until seen at your follow-up appointment and cleared. There are no restrictions for riding on short trips, however if you take a longer trip, arrangements should be made to make regular stops to get out of the vehicle and stretch . ? Swelling is an unfortunate event that will take place with any surgery and is the primary source of your postoperative discomfort. While walking and regular approved activities helps control inflammation, there are additional steps you can take to minimizeswelling. > Place ice over the surgical site and surrounding tissue for twenty minutes, followed by applying a low/medium heat (heating pad) for an additional twenty minutes every 1-2 hours as needed for painrelief. > You may use of over the counter anti-inflammatory medications (Ibuprofen, Motrin, Aleve, Advil, etc) as directed on the package label. These types of medicines wm significantly reduce the amount of discomfort you e xperience after surgery from swelling. It should be noted that if you have and allergy to any of these medications, or a history of ulcers or kidney disease you should consult you primary care provider prior to starting these medications. Discharge Attestations Time Spent in Discharge Care*: less than 30 min Quality Metrics Clinical Quality Measures [ No reported AMI, CVA or VTE this stay] Coding Level of Care Code Acute [facility] note Diagnoses Incidental durotomy G97.41
== END 2022-08-07 15:00 | disposition home or self-care (01) | DRG 909 ==
LOC: MEDSURG 14:52
PROVIDERS: Anesthesiology; Admitting Provider Orthopaedic Surgery; PCP Family Medicine; Visit Provider Orthopaedic Surgery
PROC: 00QT0ZZ Repair Spinal Meninges, Open Approach (ICD-10-PCS; CPT 63005; principal; 2022-08-06 07:00)
DX: G97.41 Accidental puncture or laceration of dura during a procedure (principal); I10 Essential (primary) hypertension; Z98.84 Bariatric surgery status; Z87.891 Personal history of nicotine dependence; Z98.1 Arthrodesis status; Z79.891 Long term (current) use of opiate analgesic; Z96.82 Presence of neurostimulator
CPT/HCPCS: 51702; 81025; 84703; 97161; J0131; J0690; J1100; J1170; J2250; J2270; J2405; J2704; J2710; J2765; J3010; J3490; J7030; J7120

== ENCOUNTER → 2022-08-12 09:31 | Outpatient (BNVA) | payer MEDICARE, MEDICAID, SELFPAY | PROVIDERS: PCP Family Medicine; Visit Provider Physician Assistant | DX: Z47.89 Encounter for other orthopedic aftercare (principal); G97.41 Accidental puncture or laceration of dura during a procedure | CPT/HCPCS: 99024 ==

== ENCOUNTER → 2022-08-19 08:43 | Outpatient (BNVA) | payer MEDICARE, MEDICAID, SELFPAY | PROVIDERS: PCP Family Medicine; Visit Provider Physician Assistant | DX: Z98.1 Arthrodesis status (principal); G97.41 Accidental puncture or laceration of dura during a procedure | CPT/HCPCS: 99024 ==

== ENCOUNTER → 2022-08-26 08:26 | Outpatient (BNVA) | payer MEDICARE, MEDICAID, SELFPAY | PROVIDERS: PCP Family Medicine; Visit Provider Physician Assistant | DX: Z98.1 Arthrodesis status (principal); G97.41 Accidental puncture or laceration of dura during a procedure; T88.8XXD Other specified complications of surgical and medical care, not elsewhere classified, subsequent encounter; X58.XXXD Exposure to other specified factors, subsequent encounter | CPT/HCPCS: 99024 ==

== ENCOUNTER 2024-08-23 13:13 | Emergency (ER) | payer MEDICARE, MEDICAID, SELFPAY ==
[2024-08-23] VITALS (10 sets, daily range): BP systolic 103–144; BP diastolic 65–91; PULSE 71–78; RESP 14–16; TEMP 36.8; O2SAT 75–100; BMI 41.1
--- NOTE | 2024-08-23 13:14 | XRR_ITS ---
PROCEDURE INFORMATION: Exam: XR Left Ankle Exam date and time: 08/23/2024 1:15 PM Age: 54 years old Clinical indication: Injury or trauma; Fall; Blunt trauma; Ankle; Left TECHNIQUE: Imaging protocol: Radiologic exam of the left ankle. Views: 3 or more views. COMPARISON: CR XR foot LT min 3V* [id number] 12/23/2019 12:53 PM FINDINGS: Bones/joints: Oblique fracture of the distal left fibula 2 cm proximal to the ankle. Transverse fracture through the base of the left medial malleolus. Nondisplaced vertical fracture distal left tibial posterior malleolus. A few mm lateral displacement of the distal left fibular fracture fragment, left medial malleolus, and left talus. Otherwise, unremarkable. Soft tissues: Diffuse soft tissue swelling. Otherwise, unremarkable. XR/XR ankle LT min 3V* [id number] IMPRESSION: Trimalleolar left ankle fracture with displacement as above.
--- NOTE | 2024-08-23 13:23 | ED_ITS ---
HPI - Extremity Problem General: Chief complaint: Extremity Injury, Lower Stated complaint: Fall, LT Ankle pain Time Seen by Provider: 08/23/24 13:13 Source: patient and EMS Mode of arrival: EMS Limitations: no limitations History of Present Illness: 54-year-old female who states she had st epped wrong off a step injuring her left ankle she has obvious deformity to the left ankle states she has pain she rates a 4 out of 10 currently she did receive fentanyl and route. She denies any other injuries. Associated symptoms: Deny chest pain, fever(s) or rash Related Data Home Medications Medication Instructions Recorded Confirmed metoprolol tartrate 50 mg tablet 50 mg PO BID 04/18/21 08/23/24 (Lopressor) venlafaxine 150 mg 150 mg PO BID 04/18/21 08/23/24 capsule,extended release 24 hr (Effexor XR) zolpidem 5 mg tablet (Ambien) 5 mg PO DAILY 04/18/21 08/23/24 ttcftuv-ouyuyoggocaly-ucthjbad 250 1 tab PO ONCE PRN Pain 09/25/21 08/23/24 mg-250 mg-65 mg tablet (Excedrin Extra Strength) methocarbamol 750 mg tablet 750 mg PO QID PRN Muscle Spasm 07/18/22 08/23/24 bupropion HCl 300 mg 24 hr tablet, 300 mg PO QAM 08/23/24 08/23/24 extended release metformin 500 mg tablet,extended 500 mg PO QAM 08/23/24 08/23/24 release 24 hr pregabalin 75 mg capsule 75 mg PO BID 08/23/24 08/23/24 Previous Rx's Medication Instructions Recorded tramadol 50 mg tablet 50 mg PO Q6H PRN pain #14 tabs 08/23/24 Allergies Allergy/AdvReac Type Severity Reaction Status Date / Time adhesive Allergy red skin Verified 08/26/22 08:31 tizanidine Allergy Hallucinati Verified 08/26/22 08:31 ons zonisamide [From Zonegran] AdvReac Mild ITCHING Verified 08/26/22 08:31 codeine AdvReac Racing Verified 08/26/22 08:31 thoughts hydrocodone AdvReac Itching Verified 08/26/22 08:31 ibuprofen AdvReac RASH/ Verified 08/26/22 08:31 ITCHING Review of Systems Const: Denies: fever(s), chills, body aches or change in appetite ENMT: Denies: throat pain or dental pain Card: Denies: chest pain Resp: Denies: dyspnea GI: Denies: abdominal pain, nausea, vomiting or diarrhea Musc: Reports: extremity pain; Denies: neck pain or back pain Skin/Breast: Denies: rash Neuro: Denies: headache(s) PFSH ED PFSH: Medical History Hypertension Surgical History History of neck surgery S/P insertion of spinal cord stimulator lumbar & cervical Personal hx of gastric bypass 2-3 yrs ago [place] Family History Other Diabetes Social History Smoking and tobacco/nicotine status: former use of tobacco/nicotine Second hand smoke exposure: No Alcohol intake: never Substance/Drug Use: never Physical Exam Const: COMMON NORMALS: no acute distress, patient oriented x3 and healthy appearing HENMT: COMMON NORMALS: normocephalic and atraumatic HEAD & SCALP: normocephalic and atraumatic Eye: COMMON NORMALS: conjunctivae normal CONJUNCTIVA: Yes conjunctivae normal Neck/C-Spine: COMMON NORMALS: full ROM and supple Chest: COMMONS NORMALS: normal inspection of the chest Resp: COMMON NORMALS: normal respiratory effort, No retractions, No use of accessory muscles and clear to auscultation bilaterally AUSCULTATION: clear to auscultation bilaterally Cardio: COMMON NORMALS: regular rate, regular rhythm and No murmurs present (Cardio) RATE: regular rate RHYTHM: regular rhythm Extremity: NARRATIVE EXTREMITY EXAM: Tenderness to left ankle distal pulses intact obvious abnormality left ankle Neuro: COMMON NORMALS: patient oriented x3, moves all extremities and no focal motor deficits Psych: COMMON NORMALS: mental status grossly normal, Normal thought process present and cooperative THOUGHT PROCESS: Normal thought process present Skin: COMMON NORMALS: no rashes or lesions noted and no wounds GENERAL SKIN EXAM: no rashes or lesions noted Procedures Orthopedic Fracture Reduction Fracture #1: Time Out Performed: Yes Side: left Fracture Reduction Location: other (ankle) Analgesia: procedural sedation Technique: direct manipulation Post Reduction X-rays Demonstrate: anatomical reduction Post-reduction neuro exam: intact Post-reduction vascular exam: intact Splint Applied: Yes Patient Tolerated Procedure: well Procedural Sedation Indication: fracture/dislocation reduction ASA Class: I Time of Last PO Intake: 09:00 Preparation: gas analyst applied and pulse oximeter IV Propofol dose (mg): 60 Course Vital Signs: Vital signs: Vital Signs Temperature 98.2 F 08/23/24 13:19 Pulse Rate 75 08/23/24 14:38 Respiratory Rate 16 08/23/24 14:38 Blood Pressure 141/91 08/23/24 14:38 Pulse Oximetry 75 L 08/23/24 14:38 Oxygen Delivery Me thod Room Air 08/23/24 14:15 Oxygen Flow Rate 2 08/23/24 14:05 MDM - Extremity (Nontraumatic) Medical Decision Making Patient presents here with a an ankle fracture to the left ankle she did have a fracture dislocation did reduce the dislocation we will get her follow-up with podiatry she is stable for discharge she is to be nonweightbearing Medical Records I reviewed the patient's medical records. Lab Data Radiology Impressions Ankle X-Ray 08/23/24 13:40 IMPRESSION: Considerable improvement in displacement of trimalleolar fracture fragments and of the talus post closed reduction. All radiology interpretation(s) finalized by discharge Discharge Plan Discharge Patient Disposition: Home Clinical Impression: Ankle fracture Qualifiers: Encounter type: initial encounter Fracture type: closed Laterality: left Qualified Code(s): S82.892A - Other fracture of left lower leg, initial encounter for closed fracture Condition: Stable Prescriptions: New tramadol 50 mg tablet 50 mg PO Q6H PRN (Reason: pain) Qty: 14 0RF No Action venlafaxine [Effexor XR] 150 mg capsule,extended release 24hr 150 mg PO BID Rx Instructions: take 2 capsules by mouth twice daily metoprolol tartrate [Lopressor] 50 mg tablet 50 mg PO BID zolpidem [Ambien] 5 mg tablet 5 mg PO DAILY Excedrin Extra Strength 250-250-65 mg tablet 1 tab PO ONCE PRN (Reason: Pain) methocarbamol 750 mg Tablet 750 mg PO QID PRN (Reason: Muscle Spasm) metformin 500 mg tablet extended release 24 hr 500 mg PO QAM bupropion HCl 300 mg tablet extended release 24 hr 300 mg PO QAM pregabalin 75 mg capsule 75 mg PO BID Discharge Orders: Discharge ED (Routine); Ordered 08/23/24 Ordered By: Matt Fraga Referrals: Albin Espinal DPM [Physician] - 4-7 days Leela France DO [Primary Care Provider] - Discharge Diet: Advance as tolerated Discharge Activity: Limit activity as instructed and Use walker/crutches as instructed Patient Instructions: Ankle Fracture (ED), Opioid Safety Coding Level of Care Code ED Supervisor [employer] for Ghazal Hutchins
--- NOTE | 2024-08-23 13:40 | XRR_ITS ---
PROCEDURE INFORMATION: Exam: XR Left Ankle Exam date and time: 08/23/2024 1:48 PM Age: 54 years old Clinical indication: Injury or trauma; Fall; Blunt trauma; Ankle; Left; Additional info: Post reduction TECHNIQUE: Imaging protocol: Radiologic exam of the left ankle. Views: 1 or 2 views. COMPARISON: CR XR ankle LT min 3V* [id number] 08/23/2024 1:15 PM FINDINGS: Bones/joints: Osseous detail is obscured by overlying cast material. Considerable improvement in displacement of trimalleolar fracture fragments and of the talus post closed reduction. Otherwise, unremarkable. Soft tissues: Probably unchanged soft tissue swelling. Otherwise, unremarkable soft tissues. XR/XR ankle LT 2V [id number] IMPRESSION: Considerable improvement in displacement of trimalleolar fracture fragments and of the talus post closed reduction.
[2024-08-23] MEDS: propofol 10 mg/mL SDV 20 mL 100 MG IVP (13:43)
--- NOTE | 2024-08-23 14:03 | PC.NURSE ---
Propofol 140mg/14ml wasted with Evie tripathi.
--- NOTE | 2024-08-29 07:38 | DCPLANNER ---
Message sent to Podiatry for left ankle fx-
== END 2024-08-23 14:47 | disposition home or self-care (01) ==
PROVIDERS: Emergency Provider Emergency Medicine; PCP Family Medicine
DX: S82.892A Other fracture of left lower leg, initial encounter for closed fracture (principal); Z79.84 Long term (current) use of oral hypoglycemic drugs; Z87.891 Personal history of nicotine dependence; I10 Essential (primary) hypertension; X58.XXXA Exposure to other specified factors, initial encounter
CPT/HCPCS: 27818; 73600; 73610; 99152; 99285; E0114; J2704

== ENCOUNTER → 2024-08-25 14:13 | Outpatient (BNVA) | payer MEDICAID, MEDICARE, SELFPAY | PROVIDERS: PCP Family Medicine; Visit Provider Podiatrist Foot & Ankle Surgery | DX: S82.852A Displaced trimalleolar fracture of left lower leg, initial encounter for closed fracture (principal); W19.XXXA Unspecified fall, initial encounter | CPT/HCPCS: 29515; 99204 ==

== ENCOUNTER 2024-09-01 05:36 | Day surgery (SDC) | payer MEDICARE, MEDICAID, SELFPAY ==
[2024-09-01] VITALS (8 sets, daily range): BP systolic 97–149; BP diastolic 52–99; PULSE 64–80; RESP 16–18; TEMP 36.1–36.7; O2SAT 90–96
--- NOTE | 2024-09-01 06:19 | ANES.PREANE2 ---
Pre-Anesthetic Assessment Height/Weight: Height 5 ft 4 in Preop Diagnosis: Left trimalleolar ankle fracture Operation Date: 09/01/24 07:00 Proposed Procedures p ORIF Ankle ORIF Trimalleolar Fracture(Left) - Albin Espinal DPM s Ankle Arthroscopy(Left) - Albin Espinal DPM Was Beta Shae taken within 24 hours: N/A Was Clonidine taken within 24 hours: N/A Social No alcohol and No tobacco Exam alert, oriented x 3, clear to auscultation bilaterally and regular rate & rhythm Airway Submandibular: within normal limits Cervical ROM: within normal limits Mallampati: Class III Dentition: full Comments: Comments: Smaller mouth opening Anesthetic Plan ASA status: 2 Anesthesia: General and Regional (specify below) Other: No prior issues with anesthesia NPO since yesterday On metformin, denies diabetes. States she was placed on this for weight loss On metoprolol for heart palpitations S/p cervical fusion Plan for general with post induction nerve block Medications/Allergies Home Medications Medication Instructions Recorded Confirmed Last Taken Type metoprolol tartrate 50 mg tablet 50 mg PO BID 04/18/21 08/31/24 09/01/24 05:50 History (Lopressor) venlafaxine 150 mg 150 mg PO BID 04/18/21 08/31/24 08/31/24 History capsule,extended release 24 hr (Effexor XR) zolpidem 5 mg tablet (Ambien) 5 mg PO DAILY 04/18/21 08/31/24 08/30/24 History bejznzz-szhmlgrocynyo-nejrterw 250 1 tab PO ONCE PRN Headache 09/25/21 08/31/24 3 Days Ago History mg-250 mg-65 mg tablet (Excedrin ~08/28/24 Extra Strength) methocarbamol 750 mg tablet 750 mg PO QID PRN Muscle Spasm 07/18/22 08/31/24 08/31/24 History bupropion HCl 300 mg 24 hr tablet, 300 mg PO QAM 08/23/24 08/31/24 08/31/24 History extended release metformin 500 mg tablet,extended 500 mg PO QAM 08/23/24 08/31/24 2 Weeks Ago History release 24 hr ~08/17/24 pregabalin 75 mg capsule 75 mg PO BID 08/23/24 08/31/24 08/31/24 History Allergies Allergy/AdvReac Type Severity Reaction Status Date / Time adhesive Allergy red skin Verified 09/01/24 06:11 tizanidine Allergy Hallucinati Verified 09/01/24 06:11 ons tramadol Allergy ADR-Itching Verified 09/01/24 06:11 zonisamide [From Zonegran] AdvReac Mild ITCHING Verified 09/01/24 06:11 codeine AdvReac Racing Verified 09/01/24 06:11 thoughts hydrocodone AdvReac Itching Verified 09/01/24 06:11 ibuprofen AdvReac ADR-Shakine Verified 09/01/24 06:11 [facility] Anesthesia Medical History Hypertension Surgical History History of neck surgery S/P insertion of spinal cord stimulator lumbar & cervical Personal hx of gastric bypass 2-3 yrs ago [place] Family History Other Diabetes Social History Smoking and tobacco/nicotine status: unknown if used tobacco/nicotine Second hand smoke exposure: No Alcohol intake: never Substance/Drug Use: never Female Reproductive History Date of last menstrual period: 08/03/24 Data Anesthesia Cardiac Studies: No Data to Display
[2024-09-01] MEDS: sodium chloride 0.9% 1,000 ML 30 ML IV (06:22)
[2024-09-01] MEDS: gabapentin 300 mg Capsule PO (06:23)
[2024-09-01] MEDS: acetaminophen 1,000 MG/100 ML PIGGYBACK 400 MG IV (06:23)
--- NOTE | 2024-09-01 06:47 | W.PM.OPSUD ---
Surgery/Procedure H&P Update DATE OF PROCEDURE: September 01, 2024 DATE H&P PERFORMED: 08/25/24 H&P UPDATE INFORMATION: I have reviewed H&P completed within last 30 days, I have examined patient prior to procedure, No changes to prior documentation and H&P is in [facility] EMR on date indicated PREOP DIAGNOSIS: Left trimalleolar ankle fracture PLANNED PROCEDURE: Operation Date: 09/01/24 07:00 Proposed Procedures p ORIF Ankle ORIF Trimalleolar Fracture(Left) - Albin Espinal DPM s Ankle Arthroscopy(Left) - Albin Espinal DPM
[2024-09-01] MEDS: ceFAZolin 2,000 mg SDV 2000 MG IVP (07:10)
--- NOTE | 2024-09-01 07:15 | ANES.PROC ---
Anesthesia Procedures Procedure/Date: 09/01/24 Nerve Block ^: Nerve Block 1: Main Anesthesia: general anesthesia Time Out Performed: Yes Consent: requested by attending/covering physician and from patient Nerve block location: popliteal Anesthesia monitors applied: pulse oximetry, EKG, BP cuff and oxygen Nerve block position: supine Anesthetic Used: ropivicaine 0.5% Amount of anesthesia used (mL): 20 Ultrasound used to: recognize landmarks Nerve Stimulator Used?: Yes Interscalene/Femoral BLK: other needle (pjunk 4inch) Injection: neg aspiration of heme Patient Tolerated Procedure: well Complications: none Additional Comments: decadron 4mg added to block Nerve Block 2: Main Anesthesia: general anesthesia Time Out Performed: Yes Consent: requested by attending/covering physician and from patient Nerve block location: adductor canal Anesthesia monitors applied: pulse oximetry, EKG, BP cuff and oxygen Nerve block position: supine Anesthetic Used: ropivicaine 0.5% Amount of anesthesia used (mL): 15 Ultrasound used to: recognize landmarks Nerve Stimulator Used?: Yes Interscalene/Femoral BLK: other needle (pjunk 4inch) Injection: neg aspiration of heme Patient Tolerated Procedure: well Complications: none
--- NOTE | 2024-09-01 08:55 | XR_ITS ---
WS: [id number] Left elbow, 3 views, 09/01/2024 Clinical Data: fall Comparison: None. Findings: There is a slightly impacted fracture of the radial neck into the radial head. The humeral condyles a nd olecranon are normal. No soft tissue swelling is seen. XR/XR elbow LT min 3V* [id number] Impression: Impacted fracture left radial head and neck.
--- NOTE | 2024-09-01 08:55 | XR_ITS ---
WS: [id number] Left forearm, AP and lateral views, 09/01/2024 Clinical Data: fall Comparison: None. Findings: There is a slightly impacted fracture of the left radial head and neck. The shaft of the left radius is normal. The left ulna is normal. There is no soft tissue abnormality. XR/XR forearm LT 2V [id number] Impression: Impacted fracture left radial head and neck.
--- NOTE | 2024-09-01 08:55 | XR_ITS ---
WS: [id number] Left ankle, 3 views, 09/01/2024 Clinical Data: post op Comparison: Left ankle, 08/23/2024 Findings: Internal fixation of the trimalleolar fracture of the left ankle involves 2 oblique screws in the med ial malleolus and a lateral plate with screws in the distal left fibula. Subcutaneous surgical anders are present over the lateral malleolus. XR/XR ankle LT min 3V* [id number] Impression: Internal fixation of trimalleolar fracture of the left ankle.
--- NOTE | 2024-09-01 08:56 | W.PM.BPON ---
Date of procedure: 09/01/2024 Surgeon name: Dr. Albin Espinal D.P.M. Ice Cream Machine Operator(s) name(s): Dorina Wright Procedure(s) performed: Open reduction internal fixation of left trimalleolar ankle fracture, left ankle arthroscopy Description of findings: Left trimalleolar ankle fracture Estimated blood loss: 5 cc Tourniquet time: 74 minutes Specimen(s) removed: None Post-operative diagnosis: Left trimalleolar ankle fracture
--- NOTE | 2024-09-01 09:08 | PM.OP ---
Operative Report Date of procedure: September 01, 2024 Surgeon: Albin Espinal DPM Procedure: Date of procedure: 09/01/2024 Pre-op diagnosis: Left trimalleolar ankle fracture Post-op diagnosis: Same Post-op findings: Left trimalleolar ankle fracture Procedure done: 1. ORIF left trimalleolar ankle fracture CPT 27919 2. Left ankle arthroscopy with debridement CPT 96136 Implants: One third tubular plate with 3.5 locking and nonlocking screws, two 4.0 cannulated headed short threaded compression screws all from [employer] Specimens removed: None Surgeon: Dr. Albin Espinal DPM Multimedia Services Coordinator: Dorina Wright Estimated blood loss: 5 cc Tourniquet time: 74 minutes Complications: None Patient is a 54-year-old female that has a history of left trimalleolar ankle fracture. The inherent instability of the fracture pattern necessitates open reduction internal fixation. A lengthy discussion regarding the procedure, including risks and complications has been had with the patient and is noted in the recent clinic note. Written and verbal consent have been obtained. All patient questions have been answered to the patient?s satisfaction. No written or verbal guarantees have been given or implied. The patient has been NPO since midnight. The history has been reviewed and the history and physical is current. The signed consent was confirmed and placed in the patient chart. Patient imaging has been reviewed and is consistent with the diagnosis. Under mild sedation, the patient was brought into the operating room and placed on the table in the supine position. IV antibiotics were given by the anesthesia team as preoperative surgical prophylaxis. General sedation was then performed by the anesthesiateam. A popliteal block was performed by the anesthesia department. A pneumatic tourniquet was then placed about the left thigh. The operative extremity was then prepped and draped in the usual fashion. The extremity was then elevated and exsanguinated before the tourniquet was inflated to 325 mmHg. After inflation, the following procedure was then performed. Attention was directed to the anterior ankle where anteromedial arthroscopy portal was created using a #15 blade after 20 cc of sterile saline was used to insufflate the ankle joint. Mosquito hemostat was used to bluntly dissect down to the level of the joint capsule which was pierced. Trocar and cannula was inserted into the portal before the arthroscope was inserted into the cannula. The ankle joint was clearly visualized. It was inspected and no osteochondral defect was visualized. There was noted to be a moderate amount of synovitis within the ankle joint. Anterolateral portal was established using a #15 blade and a 2.0 shaver was inserted into the ankle joint. Visualized synovitis of the ankle joint was debrided using arthroscopic shaver. Again, no osteochondral defect or cartilage deficit was noted. Camera and shaver was removed and portal incisions were closed using 4-0 nylon. Attention was then directed to the lateral aspect of the left ankle where a 10 cm incision was made using a #15 blade. Dissection was carried down through subcutaneous the superficial fascia to the level of periosteum which was incised using a #15 blade. The underlying fracture was visualized. Hematoma formation was noted about the fracture. Combination of rongeur, dental pick and curette was used to remove hematoma formation. The distal fibula fracture was unable to be properly reduced. Attention was directed to the medial aspect of the ankle where a 6 cm incision was made overlying the medial malleolus. Dissection was carried down to the level of the medial malleolus fracture. Hematoma formation was visualized within the fracture. Using a combination of dental pick and curette, this was removed. The periosteum was noted to be preventing adequate reduction of the fracture. This was debrided away before the medial malleolus was reduced to the appropriate position. It was temporally fixated with guidewires. Next attention was redirected to the lateral malleolus. It was reduced appropriately before a one third tubular plate was placed on the posterior lateral aspect of the fibula in antiglide fashion. The holes of the plate were filled with comminution of locking and nonlocking 3.5 screws. Good positioning of the plate and screws was noted clinically as well as on C-arm imaging. Attention was then directed to the medial malleolus. Two 4.0 x 50 mm short threaded headed screws were inserted over the wires across the fracture site after being drilled. Good positioning of all plate and screws was visualized. Incision sites were irrigated with copious amounts of sterile saline. The tourniquet was let down good hyperemic response was noted to all digits of the left foot. Incisions were closed with combination of 2.0 Vicryl for deep 3.0 Vicryl for subcuticular closure and 3-0 nylon and skin anders for skin closure. Incision sites were dressed with Xeroform, 4 x 4 gauze, Kerlix, Shabbir. Patient was placed in a cam boot. The patient tolerated the procedure and anesthesia well and without complication. The patient was transported from the operating room to the recovery room with vital signs stable and vascular status intact to all digits of the left foot. The patient was given both written and verbal instructions to remain nonweightbearing to the operative extremity, to keep dressings/splint clean, dry and intact and to take pain medication as directed. The patient will follow-up in the outpatient setting at their scheduled appointment. The patient was discharged with my personal number and was instructed to call if any questions or issues should arise. They were discharged home once anesthesia criteria was met.
[2024-09-01] MEDS: HYDROcodone-acetaminophen 10-325 mg Tablet 1 TAB PO (09:40)
--- NOTE | 2024-09-01 10:29 | P.CONIM_ITS ---
Providers/Reason For Consult Consulting Physician/Specialty*: Merly Koo MD Reason for Consult*: Left arm fracture Requesting Physician: Albin Espinal DPM Attending Physician: Albin Espinal DPM Primary Care Provider: Leela France DO History of Present Illness History of Present Illness Rea Rider is a 54 year old female who presented to the surgical suite prior to open reduction internal fixation of her left ankle. This was to be performed by Dr. Albin Espinal. Prior to the surgical procedure, the patient stated to Dr. Espinal that she was concerned that she had broken her arm. She states that this injury occurred a couple of days after the initial injury to her left ankle. Review of Systems Narrative: Patient presented for surgery, and following surgical intervention, I was consulted to see the patient with regards to swelling and pain in her left arm. She has no other complaints at this time. Medications/Allergies Home Medications Medication Instructions Recorded Confirmed Last Taken Type metoprolol tartrate 50 mg tablet 50 mg PO BID 04/18/21 08/31/24 09/01/24 05:50 History (Lopressor) venlafaxine 150 mg 150 mg PO BID 04/18/21 08/31/24 08/31/24 History capsule,extended release 24 hr (Effexor XR) zolpidem 5 mg tablet (Ambien) 5 mg PO DAILY 04/18/21 08/31/24 08/30/24 History nulzrcn-siaewttlrjtab-ingauigk 250 1 tab PO ONCE PRN Headache 09/25/21 08/31/24 3 Days Ago History mg-250 mg-65 mg tablet (Excedrin ~08/28/24 Extra Strength) methocarbamol 750 mg tablet 750 mg PO QID PRN Muscle Spasm 07/18/22 08/31/24 08/31/24 History bupropion HCl 300 mg 24 hr tablet, 300 mg PO QAM 08/23/24 08/31/24 08/31/24 History extended release metformin 500 mg tablet,extended 500 mg PO QAM 08/23/24 08/31/24 2 Weeks Ago History release 24 hr ~08/17/24 pregabalin 75 mg capsule 75 mg PO BID 08/23/24 08/31/24 08/31/24 History Wheel Chair #1 ea 09/01/24 Unknown Rx hydrocodone 10 mg-acetaminophen 1 tab PO Q6H PRN pain #28 tabs 09/01/24 Unknown Rx 325 mg tablet Allergies Allergy/AdvReac Type Severity Reaction Status Date / Time adhesive Allergy red skin Verified 09/01/24 06:11 tizanidine Allergy Hallucinati Verified 09/01/24 06:11 ons tramadol Allergy ADR-Itching Verified 09/01/24 06:11 zonisamide [From [facility]] AdvReac Mild ITCHING Verified 09/01/24 06:11 codeine AdvReac Racing Verified 09/01/24 06:11 thoughts hydrocodone AdvReac Itching Verified 09/01/24 06:11 ibuprofen AdvReac ADR-Shakine Verified 09/01/24 06:11 ss Current Medications Generic Name Dose Route Start Last Admin Trade Name Freq PRN Reason Stop Dose Admin Sodium Chloride 1,000 mls @ 30 mls/hr 09/01/24 06:00 09/01/24 09:55 Sodium Chloride 0.9% IV 09/02/24 05:59 Infused .Q24H ALEXI Infusion PFSH Acute PFSH: Medical History Hypertension Surgical History History of neck surgery S/P insertion of spinal cord stimulator lumbar & cervical Personal hx of gastric bypass 2-3 yrs ago [place] Family History Other Diabetes Social History Smoking and tobacco/nicotine status: unknown if used tobacco/nicotine Second hand smoke exposure: No Alcohol intake: never Substance/Drug Use: never Female Reproductive History: Date of last menstrual period: 08/03/24 Vitals/I&O/Wt Last Vital Signs Temp 97.1 F L 09/01/24 09:25 Pulse 75 09/01/24 09:47 Resp 18 09/01/24 09:47 BP 119/62 09/01/24 09:47 Pulse Ox 91 09/01/24 09:47 O2 Del Method Room Air 09/01/24 09:47 O2 Flow Rate 6 09/01/24 09:10 08/31/24 09/01/24 09/01/24 22:59 06:59 14:59 Intake Total 900 / 900 Output Total Balance 895 / 895 Physical Exam Const: COMMON NORMALS: no acute distress, patient oriented x3, alert and well nourished GENERAL APPEARANCE: cooperative; not anxious and not combative ORIENTATION/CONSCIOUSNESS: Yes awake, Yes oriented to person, Yes oriented to place and Yes oriented to time HENMT: COMMON NORMALS: normocephalic and atraumatic HEAD & SCALP: normocephalic and atraumatic Eye: GENERAL EYE: appearance normal, both eyes and all related structures EYELID: eyelids normal Chest: COMMONS NORMALS: normal inspection of the chest Resp: COMMON NORMALS: normal respiratory effort EFFORT & INSPECTION: Yes able to speak in complete sentences and Yes symmetric chest movement Extremity: NARRATIVE EXTREMITY EXAM: Left lower extremity is in a boot following open reduction internal fixation of her left trimalleolar ankle fracture with Dr. Espinal. The left arm demonstrates bruising around the elbow. She has significant tenderness over the radial head. She is unable to weight-bear on the elbow either through the humerus or through the hand. She has good full range of motion, however. Neuro: COMMON NORMALS: patient oriented x3 SENSORIUM/ORIENTATION: Yes alert, Yes oriented to person, Yes oriented to place and Yes oriented to time SPEECH: speech normal Psych: ATTITUDE: Yes calm and Yes engaged ACTIVITY/MOTOR BEHAVIOR: Yes appropriate eye contact ATTENTION/CONCENTRATION: Yes attention grossly intact MEMORY/COGNITION: Yes memory grossly intact Skin: COMMON NORMALS: no rashes or lesions noted and turgor normal; negative for no jaundice GENERAL SKIN EXAM: no rashes or lesions noted, turgor normal and no jaundice Data Xray Ortho: My impression: Patient forearm and elbow x-rays are evaluated. She has an impacted radial neck fracture with no apparent extension into the radial head. There is no other fracture visualized in the forearm. A&P Assessment and plan (1) Fracture of radial neck, left, closed: Patient is seen postoperatively in the postoperative holding area at the time of discharge. She will be discharged home, but given nonweightbearing status on her left lower extremity secondary to a closed trimalleolar ankle fracture which was addressed by Dr. Espinal, she will require a platform walker. The fracture will be treated with a hinged elbow brace locked at 90 degrees. Patient is encouraged to move her shoulder and her wrist. She will follow-up with me in approximately 1 week's time. Qualifiers: Encounter type: initial encounter Fracture alignment: nondisplaced Qualified Code(s): S52.135A - Nondisplaced fracture of neck of left radius, initial encounter for closed fracture (2) Closed trimalleolar fracture of left ankle: Treated per Dr. Espinal. Coding Level of Care Code Acute Code for Chg Fwd Diagnoses Closed nondisplaced fracture of neck of left radius, initial encounter S52.135A Encounter type: initial encounter Fracture alignment: nondisplaced Closed trimalleolar fracture of left ankle S82.852A
--- NOTE | 2024-09-01 11:38 | ANE.PACU2 ---
Inpatient post-anesthesia follow up: Airway intact: Yes Vital signs: Temperature 97.1 F Pulse Rate 75 Respiratory Rate 18 Blood Pressure 119/62 Pulse Oximetry 91 Oxygen Delivery Me thod Room Air Oxygen Flow Rate 6 Fraction of Inspir ed Oxygen Hydration adequate: Yes Nausea and vomiting: No Pain level: 1 Mental status: Baseline
--- NOTE | 2024-09-01 11:38 | SUR.PHASEII ---
Patient was d/c with wheelchair that has left leg rest from HOME. Patient can picket [employer] walker with platform if needed. Patients insurance would not allow for wheelchair and walker to both be picked up at this time.
--- NOTE | 2024-09-01 11:41 | SUR.PHASEII ---
Patient was fitted with hinged elbow brace by oneil DOOLEY per Dr. Hanane blankenship
== END 2024-09-01 11:38 | disposition home or self-care (01) ==
PROVIDERS: PCP Family Medicine; Visit Provider Podiatrist Foot & Ankle Surgery
PROC: (CPT 27822; principal; 2024-09-01 07:00)
PROC: (CPT 27822; 2024-09-01 07:00)
DX: S82.852A Displaced trimalleolar fracture of left lower leg, initial encounter for closed fracture (principal); S52.122A Displaced fracture of head of left radius, initial encounter for closed fracture; W19.XXXA Unspecified fall, initial encounter; Z98.1 Arthrodesis status; I10 Essential (primary) hypertension
CPT/HCPCS: 27822; 29897; 73080; 73090; 73610; 76000; 97760; C1713; J0131; J0690; J1100; J2250; J2371; J2405; J2704; J3010; J3490; J7030; L3762

== ENCOUNTER → 2024-09-07 10:16 | Outpatient (BNVA) | payer MEDICARE, MEDICAID, SELFPAY | PROVIDERS: PCP Family Medicine; Visit Provider Specialist | DX: X58.XXXD Exposure to other specified factors, subsequent encounter; S52.135D Nondisplaced fracture of neck of left radius, subsequent encounter for closed fracture with routine healing | CPT/HCPCS: 73080; 73610; 99024; 99213; A6219; A6222 ==

== ENCOUNTER → 2024-09-22 12:59 | Outpatient (BNVA) | payer MEDICARE, MEDICAID, SELFPAY | PROVIDERS: PCP Family Medicine; Visit Provider Podiatrist Foot & Ankle Surgery | DX: S82.852D Displaced trimalleolar fracture of left lower leg, subsequent encounter for closed fracture with routine healing (principal); Z98.890 Other specified postprocedural states; X58.XXXD Exposure to other specified factors, subsequent encounter | CPT/HCPCS: 73610; 99024 ==

== ENCOUNTER → 2024-09-29 14:08 | Outpatient (BNVA) | payer MEDICARE, MEDICAID, SELFPAY | PROVIDERS: PCP Family Medicine; Visit Provider Specialist | DX: S52.135D Nondisplaced fracture of neck of left radius, subsequent encounter for closed fracture with routine healing (principal); X58.XXXD Exposure to other specified factors, subsequent encounter | CPT/HCPCS: 73080; 99024 ==

== ENCOUNTER → 2024-10-06 14:09 | Outpatient (BNVA) | payer MEDICARE, MEDICAID, SELFPAY | PROVIDERS: PCP Family Medicine; Visit Provider Podiatrist Foot & Ankle Surgery | DX: S82.852D Displaced trimalleolar fracture of left lower leg, subsequent encounter for closed fracture with routine healing (principal); Z98.890 Other specified postprocedural states; X58.XXXD Exposure to other specified factors, subsequent encounter | CPT/HCPCS: 73610; 99024 ==

== ENCOUNTER 2024-10-08 06:30 | Outpatient (RCR) | payer MEDICARE, MEDICAID, SELFPAY | END 2024-11-07 23:59 | disposition home or self-care (01) | LOC: SPT 06:30 | PROVIDERS: Visit Provider Podiatrist Foot & Ankle Surgery | DX: Z47.89 Encounter for other orthopedic aftercare (principal) | CPT/HCPCS: 97110; 97140; 97161 ==

== ENCOUNTER → 2024-10-19 09:06 | Outpatient (BNVA) | payer MEDICARE, MEDICAID, SELFPAY | PROVIDERS: PCP Family Medicine; Visit Provider Podiatrist Foot & Ankle Surgery | DX: Z98.890 Other specified postprocedural states (principal); S82.855D Nondisplaced trimalleolar fracture of left lower leg, subsequent encounter for closed fracture with routine healing; X58.XXXD Exposure to other specified factors, subsequent encounter | CPT/HCPCS: 73080; 73610; 99024 ==

== ENCOUNTER → 2024-11-02 09:04 | Outpatient (BNVA) | payer MEDICARE, MEDICAID, SELFPAY | PROVIDERS: PCP Family Medicine; Visit Provider Podiatrist Foot & Ankle Surgery | DX: S82.852D Displaced trimalleolar fracture of left lower leg, subsequent encounter for closed fracture with routine healing (principal); Z98.890 Other specified postprocedural states; X58.XXXD Exposure to other specified factors, subsequent encounter; M72.2 Plantar fascial fibromatosis | CPT/HCPCS: 73610 ==

== ENCOUNTER 2024-11-02 11:41 | Outpatient (CLI) | payer MEDICARE, MEDICAID, SELFPAY | END 2024-11-02 11:42 | disposition home or self-care (01) | LOC: SPT 11:42 | PROVIDERS: PCP Family Medicine; Visit Provider Podiatrist Foot & Ankle Surgery | DX: Z46.89 Encounter for fitting and adjustment of other specified devices (principal); S82.852D Displaced trimalleolar fracture of left lower leg, subsequent encounter for closed fracture with routine healing; X58.XXXD Exposure to other specified factors, subsequent encounter | CPT/HCPCS: 97760; L1902 ==

== ENCOUNTER 2024-11-08 06:00 | Outpatient (RCR) | payer MEDICARE, MEDICAID, SELFPAY | END 2024-12-07 23:59 | disposition home or self-care (01) | LOC: SPT 06:00 | PROVIDERS: PCP Family Medicine; Visit Provider Podiatrist Foot & Ankle Surgery | DX: Z98.890 Other specified postprocedural states (principal) | CPT/HCPCS: 97110 ==

== ENCOUNTER 2024-12-08 05:00 | Outpatient (RCR) | payer MEDICARE, MEDICAID, SELFPAY | END 2025-01-07 23:59 | disposition home or self-care (01) | LOC: SPT 05:00 | PROVIDERS: PCP Family Medicine; Visit Provider Podiatrist Foot & Ankle Surgery | DX: S82.842D Displaced bimalleolar fracture of left lower leg, subsequent encounter for closed fracture with routine healing (principal); Z98.890 Other specified postprocedural states; R26.89 Other abnormalities of gait and mobility; X58.XXXD Exposure to other specified factors, subsequent encounter | CPT/HCPCS: 97110 ==